=== PATIENT | male | born 1965 | race Caucasian/White ===

== ENCOUNTER → 2017-11-29 | Outpatient (CLI) | payer BC, SELFPAY, OTHER ==
[~2017-11-29] MED LIST: BACTRIM DS TAB1 EACH PO; CARVEDILOL6.25 MG PO; CLOTRIMAZOLE10 MG PO; IMDUR 30 MG TAB30 M1 PO; LEVAQUIN 500 M500 M2 PO; LISINOPRIL5 MG PO; LIVALO1 MG PO; MEXILETINE 150150 MG PO; MYCOBUTIN150 MG PO; PREDNISONE 20 M20 MG PO; RIFADIN300 MG PO; TIVICAY50 MG PO; TRUVADA1 EAC1 PO; VALCYTE450 MG PO
== END ==
LOC: RAD 15:50
DX: S42.032A Displaced fracture of lateral end of left clavicle, initial encounter for closed fracture (principal); X58.XXXA Exposure to other specified factors, initial encounter; Y93.89 Activity, other specified; Y92.89 Other specified places as the place of occurrence of the external cause; Y99.8 Other external cause status

== ENCOUNTER → 2018-11-10 | Outpatient (CLI) | payer BC, OTHER ==
--- NOTE | 2018-11-10 14:11 | 2DMMODE ---
[facility] [address] [place] [address] 2 D/M-MODE ECHOCARDIOGRAM Name: TENISHA DYE Room #: REG [facility]#: [id number] Admission: 11/10/18 Attend Phys: Cristopher Concepcion Discharge: Date of : 69 Date of Service: 11/10/18 1410 Report #: [id number] THIS REPORT FOR: //name// APPROVED REPORT Study performed: 11/10/2018 13:19:40 EXAM: Comprehensive 2D, Doppler, and color-flow Echocardiogram Patient Location: Out-Patient Room #: Echo lab 2 Status: routine BSA: 1.92 HR: 76 bpm BP: 124/82 mmHg Rhythm: NSR Other Information Study Quality: Good Indications Cardiomyopathy Hypertension/HDD 2D Dimensions RVDd: 28.88 mm IVSd: 9.41 (7-11mm) LVOT Diam: 23.21 (18-24mm) LVDd: 45.70 mm PWd: 9.22 (7-11mm) Ascending Ao: 34.02 (22-36mm) LVDs: 32.81 (25-40mm) Aortic Root: 37.42 mm IVC: 16.00 mm Volumes Left Atrial Volume (Systole) Single Plane 4CH: 36.93 mL Single Plane 2CH: 44.44 mL LA ESV Index: 24.00 mL/m2 Aortic Valve AoV Peak Justin.: 1.15 m/s AO Peak Gr.: 5.32 mmHg LVOT Max P.09 mmHg LVOT Max V: 0.88 m/s JUANCARLOS Vmax: 3.23 cm2 Mitral Valve E/A Ratio: 1.6 MV Decel. Time: 248.05 ms [facility] [place] [address] 2 D/M-MODE ECHOCARDIOGRAM Name: TENISHA DYE Room #: REG [facility]#: [id number] Admission: 11/10/18 Attend Phys: Cristopher Concepcion Discharge: Date of : 69 Date of Service: 11/10/18 1410 Report #: [id number] MV E Max Justin.: 0.60 m/s MV A Justin.: 0.38 m/s MV PHT: 71.93 ms IVRT: 110.73 ms Pulmonary Valve PV Peak Justin.: 0.87 m/s PV Peak Gr.: 3.02 mmHg Pulmonary Vein P Vein S: 0.60 m/s P Vein A: 0.39 m/s P Vein D: 0.31 m/s P Vein A Dur.: 133.8 msec P Vein S/D Ratio: 1.94 Left Ventricle The left ventricle is normal size. There is normal LV segmental wall motion. There is normal left ventricular wall thickness. Left ventricular systolic function is normal. The left ventricular ejection fraction is within the normal range. LVEF is 55-60%. Grade II - pseudonormal filling dynamics. Right Ventricle The right ventricle is normal size. The right ventricular systolic function is normal. Atria The left atrium size is normal. The right atrium size is normal. Aortic Valve The aortic valve is normal in structure. No aortic regurgitation is present. There is no aortic valvular stenosis. Mitral Valve The mitral valve is normal in structure. Trace mitral regurgitation. No evidence of mitral valve stenosis. Tricuspid Valve The tricuspid valve is normal in structure. There is no tricuspid valve regurgitation noted. Pulmonic Valve The pulmonary valve is normal in structure. Trace pulmonic regurgitation. Great Vessels The aortic root is normal in size. IVC is normal in size and [facility] [address] [place] [address] 2 D/M-MODE ECHOCARDIOGRAM Name: TENISHA DYE [id number] Admission: 11/10/18 Attend Phys: Cristopher Concepcion Discharge: Date of : 69 Date of Service: 11/10/18 1410 Report #: [id number] collapses >50% with inspiration. Pericardium There is no pericardial effusion. <Conclusion> The left ventricle is normal size. LVEF is 55-60%. The aortic valve is normal in structure. The mitral valve is normal in structure. Trace mitral regurgitation. The tricuspid valve is normal in structure. The pulmonary valve is normal in structure. Trace pulmonic regurgitation. There is no pericardial effusion. <ELECTRONICALLY SIGNED> By: Cristopher Zavala MD 11/10/181409 09 09 Cristopher Zavala MD /INF
== END ==
LOC: CV 10-27 08:21
DX: I42.9 Cardiomyopathy, unspecified (principal)

== ENCOUNTER → 2021-07-17 | Outpatient (CLI) | payer BC, OTHER | LOC: NUC 09:19 | PROVIDERS: ATTEND Specialist | DX: I42.9 Cardiomyopathy, unspecified (principal) ==